=== PATIENT | male | born 1945 | race Caucasian/White ===

== ENCOUNTER 2024-04-26 17:21 | Inpatient (IN) | payer MEDICARE, OTHER, SELFPAY ==
[2024-04-26] VITALS (10 sets, daily range): BP systolic 135–157; BP diastolic 66–74; PULSE 77–94; TEMP 37.3–37.7; O2SAT 90–98; BMI 20.1
--- NOTE | 2024-04-26 18:07 | ECG_ITS ---
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
--- NOTE | 2024-04-26 18:07 | XR_ITS ---
The [address] [address] Patient Name: DARELL TREJO MRN: [id number] date: 1945 Sex: M Assigned Patient Location: ED.MAIN Current Patient Location: ED.MAIN Accession/Order Number: [id number] Exam Date: 04/26/2024 18:45 Report Date: 04/26/2024 19:59 At the request of: MIGUE POOL Procedure: XR chest 1V EXAM: XR chest 1V COMPARISON: 09/21/2022 CLINICAL INDICATION: Fever, shortness of breath, increased confusion. FINDINGS: Median sternotomy wires and thoracic aortic graft, new compared to prior. Cardiac silhouette borderline enlarged. Low lung volumes. Nonspecific obscuration of the left hemidiaphragm/costophrenic angle similar to prior. Small left pleural effusion or retrocardiac left lower lung airspace opacity difficult to exclude. Otherwise the lungs appear clear. No right pleural effusion. No evidence of pneumothorax. XR/XR chest 1V IMPRESSION: Low lung volumes. Nonspecific obscuration of the left hemidiaphragm/costophrenic angle similar to prior. Small left pleural effusion or retrocardiac left lower lung airspace opacity difficult to exclude. Otherwise lungs appear clear. Electronically authenticated by: NEIDA THORNTON Date: 04/26/2024 19:59
--- NOTE | 2024-04-26 18:24 | ED.GENADUL1 ---
HPI HPI - General Adult General Chief complaint: Altered Mental Status Stated complaint: ALTERED MENTAL STATUS Time Seen by Provider: 04/26/24 18:11 Source: patient and family Mode of arrival: walk-in Limitations: no limitations History of Present Illness HPI narrative: This patient is here with his from [facility] in [place]. His describes him as a hot mess. This patient was in [facility] in [place] for weeks and weeks with multiple extensive cardiovascular and abdominal vascular procedures. To her understanding he has a stent extending from his aortic arch down into his abdominal aorta. 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 Will try to obtain his discharge diagnosis from [facility]. His chief complaint today is increased lethargy not as active not feeling very well. He is really not complaining of any pain. No real nausea or vomiting or diarrhea. His thinks he might be a little bit more confused than usual. He has not had any falls. He is starting his rehab over there. He has had multiple blood transfusions in the past. He is making a little bit a urine recently but he is largely still on peritoneal dialysis. He denies any abdominal pain today. Should also be noted that he received multiple blood transfusions. One of the surgeries was an emergency procedure after the stent was placed because he developed cardiac tamponade and had drainage of a pericardial effusion. Related Data Allergies Allergy/AdvReac Type Severity Reaction Status Date / Time cephalexin Allergy Unknown Verified 04/26/24 18:26 ibuprofen [From Motrin] AdvReac Severe one kidney Verified 04/26/24 17:25 NSAIDS (Non-Steroidal AdvReac Unknown Verified 04/26/24 18:26 Anti-Inflamma Opioid HPI Opioid Management Most Recent Opioid Data: No Data to Display Exam Narrative Exam Narrative: He is awake alert vital signs are noted. Oxygen saturation is 90% on room air. He does improve with low flow cannula. At this time he is oriented times time place and person. He is able to describe a lot of the previous surgical procedures. He was slightly confused about his family doctor's name and address but is generally not encephalopathic at this time. His neck is soft and supple with no meningeal irritation he has no headache or neck pain. Is oral cavity does not show any evidence of dental infection or soft tissue swelling. His lungs have some scattered rhonchi. Heart sounds are normal with no S3-S4 or murmur. Abdomen is soft and supple with no tenderness guarding masses or rebound. Extremities has poor skin turgor clinical volume depletion and dehydration noted. No soft tissue swelling or cellulitis of the lower extremities. He does have strong pulses. Constitutional Vital Signs, click to edit/add: Last Vital Signs Temp 99.8 F 04/26/24 17:22 Pulse 78 04/26/24 17:22 Resp 20 04/26/24 17:22 BP 136/74 04/26/24 17:22 Pulse Ox 90 L 04/26/24 18:08 O2 Del Method Room Air, Nasal Cannula 04/26/24 18:08 O2 Flow Rate 2 04/26/24 18:08 Course Vital Signs Vital signs: Vital Signs Temperature 99.8 F 04/26/24 17:22 Pulse Rate 78 04/26/24 17:22 Respiratory Rate 20 04/26/24 17:22 Blood Pressure 136/74 04/26/24 17:22 Pulse Oximetry 95 04/26/24 17:22 Oxygen Delivery Method Room Air 04/26/24 17:22 Temperature 99.8 F 04/26/24 17:22 Pulse Rate 78 04/26/24 17:22 Respiratory Rate 20 04/26/24 17:22 Blood Pressure 136/74 04/26/24 17:22 Pulse Oximetry 90 L 04/26/24 18:08 Oxygen Delivery Method Room Air, Nasal Cannula 04/26/24 18:08 Oxygen Delivery Flow Rate 2 04/26/24 18:08 Medical Decision Making MDM Narrative Medical decision making narrative: This patient has multiple multiple severe medical problems just recently home from [facility] to a [place] [facility] [place] sent here for first-time evaluation. I explained to the if we find any medical problems of substance he will have to be transferred and she is in agreement with that. Routine blood testing imaging EKGs urinalysis will be done. Discharge Plan Discharge Chief Complaint: Altered Mental Status Clinical Impression: Weakness Patient Disposition: Still a Patient Print Language: Yoruba Referrals: ROBBY CARRASCO [Primary Care Provider] - 1 week
[2024-04-26 18:27] LABS: Basophils Absolute Auto 0.1 10^3/uL (0.0-0.1); Basophils Percent Auto 0.6 % (0.2-2.0); Eosinophils Absolute Auto 0.1 10^3/uL (0.0-0.7); Eosinophils Percent Auto 1.3 % (0.9-7.0); Hematocrit 28.3 % (42.0-54.0); Hemoglobin 9.4 g/dL (14.0-18.0); Immature Granulocytes Abs Auto 0.06 10^3/uL (0.00-0.03); Immature Granulocytes Pct Auto 0.7 % (0.0-0.5); Lymphocytes Absolute Auto 1.1 10^3/uL (1.2-3.8); Mean Corpuscular HGB Conc 33.2 g/dL (29.9-35.2); Mean Corpuscular Hemoglobin 32.1 pg (25.9-34.0); Mean Corpuscular Volume 96.6 fL (80.0-94.0); Mean Platelet Volume 12.1 fL (9.5-13.5); Monocytes Absolute Auto 0.6 10^3/uL (0.3-0.8); Monocytes Percent Auto 7.3 % (1.7-12.0); Neutrophils Absolute Auto 6.6 10^3/uL (1.4-6.5); Neutrophils Percent Auto 77.1 % (43.0-75.0); Platelet Count 104 10^3/uL (150-450); Red Blood Count 2.93 10^6/uL (4.70-6.10); Red Cell Distribution Width 19.2 % (11.0-15.0); White Blood Count 8.6 10^3/uL (4.0-11.0)
[2024-04-26 18:50] LABS: INR 1.31; Prothrombin Time 13.5 sec (9.0-11.6)
[2024-04-26 19:03] LABS: Lactate/Lactic Acid 1.3 mmol/L (0.4-2.0)
[2024-04-26 19:07] LABS: Alanine Aminotransferase 37 U/L (16-63); Albumin Globulin Ratio 0.5; Albumin Level 1.7 g/dL (3.4-5.0); Alkaline Phosphatase 137 U/L (46-116); Anion Gap 12.9; Aspartate Amino Transferase 63 U/L (15-37); BUN Creatinine Ratio 7.2; Bilirubin Total 0.7 mg/dL (0.2-1.0); Calcium 7.6 mg/dL (8.5-10.1); Carbon Dioxide 26.1 mmol/L (21.0-32.0); Chloride 94 mmol/L (98-107); Estimated GFR (African America 8 (>=60); Estimated GFR (Non-African Ame 7 (>=60); Globulin 3.7 g/dL; Glucose 95 mg/dL (74-106); Sodium 128 mmol/L (136-145); Total Protein 5.4 g/dL (6.4-8.2); Troponin I High Sensitivity 11.6 pg/mL (4.0-76.1)
--- NOTE | 2024-04-26 20:58 | CT_ITS ---
The [address] [address] Patient Name: DARELL TREJO MRN: [id number] date: 1945 Sex: M Assigned Patient Location: ER Current Patient Location: ER Accession/Order Number: [id number] Exam Date: 04/26/2024 21:17 Report Date: 04/26/2024 22:55 At the request of: ESTER COTTO Procedure: CT abdomen pelvis wo con CT ABDOMEN/PELVIS WITHOUT IV CONTRAST. INDICATION: fever/recent surgery COMPARISON: There are no other studies available for comparison. TECHNIQUE: Contiguous axial images were obtained from the lung bases to the pelvic floor without intravenous or oral contrast. Coronal and sagittal reformations are provided. FINDINGS: LOWER LUNGS: There are small bilateral pleural effusions and atelectasis. LIVER/BILIARY TREE: No discrete lesion. No intrahepatic ductal dilatation. GALLBLADDER: No significant gallbladder wall thickening. No radiopaque stone. CBD: Normal CBD. SPLEEN: Normal in size. PANCREAS: No appreciable peripancreatic fluid. No pancreatic ductal dilatation. No discrete lesion. ADRENALS: Normal. KIDNEYS: Severely atrophic left kidney. No hydronephrosis. No radiopaque calculus. STOMACH AND BOWEL: Decompressed stomach. No dilated bowel loops. No bowel wall thickening. APPENDIX: Not visualized. PERITONEAL CAVITY: Small ascites.. Peritoneal dialysis catheter noted in the pelvis. ABDOMINAL WALL: Anasarca. Probable 1.6 cm subcutaneous hematoma in the left inguinal region. LYMPH NODES: No mesenteric or retroperitoneal lymphadenopathy by CT criteria. ABDOMINAL AORTA: There is an infrarenal abdominal aortic aneurysm measuring 7.3 x 5.9 cm. Status post aortoiliac endoluminal stent graft repair.. PELVIS: No acute abnormality. MUSCULOSKELETAL: No acute osseous abnormality. CT/CT abdomen pelvis wo con IMPRESSION: 1. No acute abnormality in the abdomen or pelvis. 2. Abdominal aorta 7.3 cm aneurysm status post aortoiliac endoluminal stent graft repair. 3. Small ascites. Peritoneal dialysis catheter in place. 4. Small bilateral pleural effusions and atelectasis. Electronically authenticated by: PRISCILA REMY Date: 04/26/2024 22:55
--- NOTE | 2024-04-26 20:58 | CT_ITS ---
[address] [address] Patient Name: DARELL TREJO MRN: [id number] date: 1945 Sex: M Assigned Patient Location: ER Current Patient Location: ER Accession/Order Number: [id number] Exam Date: 04/26/2024 21:17 Report Date: 04/26/2024 23:19 At the request of: JAKE MARI Procedure: CT chest wo con EXAMINATION: CT chest wo con, 04/26/2024 9:17 PM EDT HISTORY: productive cough COMPARISON: Multiple priors, most recent available chest x-ray 04/26/2024, 09/21/2022 TECHNIQUE: CT scan of the chest was performed without IV contrast. CT dose reduction technique was used, including Automated Exposure Control. FINDINGS: Moderate frothy secretions/mucous within the left bronchus and lower bronchial airways with left lower distal bronchial airway mucous plugging. Moderate lung consolidations at the bilateral lower lobes. Moderate left and small right pleural effusions with mild parietal and visceral pleural thickening. Cardiomegaly with heavy calcifications throughout the left and right coronary arteries and aortic valves. 7 mm thick pericardial effusion with mild anterior pericardial wall thickening. Prior thoracic aorta repair with thoracic and abdominal aortic stent is seen. 16 mm thick dense periaortic fluid located adjacent to the left thoracic aortic arch wall (image [id number] series 4). Aortic root measures 4.2 cm diameter. Partially visualized peritoneal free air and abdominal ascites are seen. Small hiatal hernia. No acute bony abnormality. Prior sternotomy. CT/CT chest wo con IMPRESSION: 1. Moderate frothy secretions/mucous within the left bronchus and lower bronchial airways with left lower distal bronchial airway mucous plugging. 2. Moderate lung consolidations at the bilateral lower lobes reflecting atelectasis and/or pneumonitis. 3. Moderate left and small right pleural effusions with mild parietal and visceral pleural thickening. Finding raises question of exudate etiology. 4. Cardiomegaly with heavy calcifications throughout the left and right coronary arteries and aortic valves. Correlate for any heart congestion. 5. 7 mm thick pericardial effusion with mild anterior pericardial wall thickening raising the question of pericardial inflammation/pericarditis. 6. Prior thoracic aorta repair with thoracic and abdominal aortic stent is seen. 16 mm thick dense periaortic fluid located adjacent to the left thoracic aortic arch wall (image 32-33 series 4). CT angiogram with contrast to better evaluate as indicated. 7. Partially visualized peritoneal free air and abdominal ascites are seen. CRITICAL: Important impression #1, #2, #3, #4, #5, #7 communicated to and acknowledged by Dr. Jake Mari at approximately 11:16 PM Eastern time 04/26/2024. The verbal phone communication was made by Saleem Rivera. Electronically authenticated by: SALEEM RIVERA Date: 04/26/2024 23:19
[2024-04-26] MEDS: LIDOCAINE 2% JELLY 10 ML UR (21:30)
[2024-04-26 21:49] LABS: Bilirubin Urine NEGATIVE (NEGATIVE); Blood Urine MODERATE (NEGATIVE); Clarity Urine CLEAR (CLEAR); Color Urine LT. YELLOW (YELLOW); Glucose Urine UA NEGATIVE (NEGATIVE); Ketones Urine NEGATIVE (NEGATIVE); Leukocyte Esterase Urine SMALL (NEGATIVE); Nitrite Urine NEGATIVE (NEGATIVE); Protein Urine >=300 mg/dL (NEG/TRACE); Urobilinogen Urine 0.2 EU/dL (0.2-1.0); pH Urine 7.5 (5.0-9.0)
[2024-04-26 21:52] LABS: Urine Microscopic Indicated YES
[2024-04-26 22:01] LABS: Bacteria Urine MODERATE #/HPF (NONE SEEN); Mucus Urine NONE SEEN (NONE SEEN); RBC Urine NONE SEEN #/HPF (0-2); Squamous Epithelial Cell Urine NONE SEEN #/LPF (NONE/RARE); WBC Urine >100 #/HPF (NONE SEEN)
[2024-04-26 22:02] LABS: Amorphous Sediment Urine FEW; Cast Seen? NONE SEEN #/LPF (NONE SEEN); Crystals Seen? None Seen #/HPF (None Seen); Urine Culture Indicated YES
[2024-04-26] MEDS: LEVOFLOXACIN IN DEXTROSE 5 % 500 MG/100 ML PIGGYBACK 100 MG IV (22:48)
[2024-04-27] VITALS (10 sets, daily range): BP systolic 116–137; BP diastolic 52–67; PULSE 70–81; TEMP 36.6–36.8; O2SAT 83–99; BMI 20.9
[2024-04-27] MEDS: MORPHINE SULFATE 2 MG/ML SYRINGE IV (00:12)
[2024-04-27] MEDS: 0.9 % SODIUM CHLORIDE 1,000 ML 75 ML IV (02:19)
--- NOTE | 2024-04-27 04:18 | PC.NURSE ---
jc hospitalist notified of critical BNP 97814. No new orders at this time
[2024-04-27 05:09] LABS: Basophils Percent Auto 0.4 % (0.2-2.0); Eosinophils Percent Auto 0.4 % (0.9-7.0); Hematocrit 25.1 % (42.0-54.0); Hemoglobin 8.3 g/dL (14.0-18.0); Immature Granulocytes Abs Auto 0.05 10^3/uL (0.00-0.03); Immature Granulocytes Pct Auto 0.5 % (0.0-0.5); Lymphocytes Absolute Auto 1.3 10^3/uL (1.2-3.8); Lymphocytes Percent Auto 12.9 % (20.5-60.0); Mean Corpuscular HGB Conc 33.1 g/dL (29.9-35.2); Mean Corpuscular Hemoglobin 32.2 pg (25.9-34.0); Mean Corpuscular Volume 97.3 fL (80.0-94.0); Mean Platelet Volume 11.8 fL (9.5-13.5); Monocytes Absolute Auto 0.8 10^3/uL (0.3-0.8); Monocytes Percent Auto 7.9 % (1.7-12.0); Neutrophils Absolute Auto 7.9 10^3/uL (1.4-6.5); Neutrophils Percent Auto 77.9 % (43.0-75.0); Platelet Count 80 10^3/uL (150-450); Red Blood Count 2.58 10^6/uL (4.70-6.10); Red Cell Distribution Width 19.5 % (11.0-15.0); White Blood Count 10.2 10^3/uL (4.0-11.0)
[2024-04-27 05:16] LABS: Alanine Aminotransferase 30 U/L (16-63); Albumin Globulin Ratio 0.4; Albumin Level 1.4 g/dL (3.4-5.0); Alkaline Phosphatase 111 U/L (46-116); Anion Gap 12.3; Aspartate Amino Transferase 48 U/L (15-37); BUN Creatinine Ratio 7.3; Bilirubin Total 0.6 mg/dL (0.2-1.0); Calcium 7.2 mg/dL (8.5-10.1); Carbon Dioxide 26.8 mmol/L (21.0-32.0); Chloride 95 mmol/L (98-107); Estimated GFR (African America 8 (>=60); Estimated GFR (Non-African Ame 7 (>=60); Globulin 3.3 g/dL; Glucose 85 mg/dL (74-106); Potassium 5.1 mmol/L (3.5-5.1); Sodium 129 mmol/L (136-145); Total Protein 4.7 g/dL (6.4-8.2)
--- NOTE | 2024-04-27 09:54 | PC.NURSE ---
Patient's called keno writer and stated she could not bring in patient's dialysis equipment and wanted him to be transferred to [facility], as that is where all his specialists are. Steel Erector Apprentice then called and spoke with Dr Clemente, who states he agrees and will start transfer process
--- NOTE | 2024-04-27 10:01 | P.HP_ITS ---
HPI H&P: HPI History of Present Illness Chief complaint: ALTERED MENTAL STATUS Pneumonia Narrative: Pt who is on home peritoneal dialysis per scented to the emergency room with increasing altered mental status. In ER found to have possible UTI and possible left lower lobe pneumonia. Patient has had a persistent cough with increasing cough over the last couple days. When I saw patient up on the medical surgical floor, he was resting comfortably in bed but did have a cough persisting throughout the evaluation. Opioid HPI Opioid Management Most Recent Pain and Opioid Data: Last Pain Assessment 04/27/24 10:00 Last MAR Pain Assessment 04/27/24 00:12 Last ORT Total Score 0 04/27/24 03:56 Last ORT Risk Category Low Risk 04/27/24 03:56 Review of Systems ROS Status of ROS 10 or more systems reviewed and unremark able except as noted in history and below PFSH PFS Medical History (Updated 04/27/24 @ 10:50 by Priyank Clemente MD) Depression ?F32.A - Depression, unspecified (ICD-10) Anxiety ?F41.9 - Anxiety disorder, unspecified (ICD-10) Hypertension ?I10 - Essential (primary) hypertension (ICD-10) End stage renal disease ?N18.6 - End stage renal disease (ICD-10) Peritoneal dialysis catheter in place ?Z99.2 - Dependence on renal dialysis (ICD-10) AAA (abdominal aortic aneurysm) ?I71.40 - Abdominal aortic aneurysm, without rupture, unspecified (ICD-10) Fatigue ?R53.83 - Other fatigue (ICD-10) Hematuria ?R31.9 - Hematuria, unspecified (ICD-10) Abnormal weight loss ?R63.4 - Abnormal weight loss (ICD-10) Status post endoscopic repair of thoracic aortic aneurysm (TAA) ?Z86.79 - Personal history of other diseases of the circulatory system (ICD- 10) ?Z98.890 - Other specified postprocedural states (ICD-10) Aneurysmal dilatation ?I72.9 - Aneurysm of unspecified site (ICD-10) Mural thrombus of heart ?I51.3 - Intracardiac thrombosis, not elsewhere classified (ICD-10) Arterial stenosis ?I77.1 - Stricture of artery (ICD-10) Atrophy of left kidney ?N26.1 - Atrophy of kidney (terminal) (ICD-10) Bladder tumor ?D49.4 - Neoplasm of unspecified behavior of bladder (ICD-10) PAD (peripheral artery disease) ?I73.9 - Peripheral vascular disease, unspecified (ICD-10) Surgical History (Updated 04/27/24 @ 03:49 by Sophy June RN) S/P femoral-popliteal bypass surgery ?Z95.828 - Presence of other vascular implants and grafts (ICD-10) S/P insertion of iliac artery stent ?Z95.828 - Presence of other vascular implants and grafts (ICD-10) H/O repair of rotator cuff ?Z98.890 - Other specified postprocedural states (ICD-10) H/O right knee surgery ?Z98.890 - Other specified postprocedural states (ICD-10) History of endovascular stent graft for abdominal aortic aneurysm ?Z95.828 - Presence of other vascular implants and grafts (ICD-10) Status post endovascular aneurysm repair (EVAR) ?Z98.890 - Other specified postprocedural states (ICD-10) ?Z86.79 - Personal history of other diseases of the circulatory system (ICD- 10) Status post aortic arch reconstruction ?Z98.890 - Other specified postprocedural states (ICD-10) Social History (Updated 04/27/24 @ 03:50 by Sophy June, DANIKA) Within the past year, how often did you have a drink containing alcohol: monthly or less Within the past year, how many standard drinks containing alcohol did you have on a typical day: 3 or 4 Within the past year, how often did you have six or more drinks on one occasion: never Total score: 2 Score interpretation: A score less than 4 is consistent with normal alcohol consumption. Smoking status: Current every day smoker Non-prescribed substance use: denies use Meds Home Medications and Allergies Home Medications ?Medication ?Instructions ?Recorded ?Confirmed ?Type albuterol sulfate 90 mcg/actuation 2 inh inhalation Q6H PRN shortness 04/27/24 04/27/24 History aerosol inhaler of breath or wheezing amlodipine 5 mg tablet 5 mg PO DAILY 04/27/24 04/27/24 History aspirin 81 mg tablet,delayed 81 mg PO DAILY 04/27/24 04/27/24 History release atorvastatin 10 mg tablet 10 mg PO BEDTIME 04/27/24 04/27/24 History cholecalciferol (vitamin D3) 1,250 1,250 mcg PO QWEEK 04/27/24 04/27/24 History mcg (50,000 unit) capsule colchicine 0.6 mg tablet 0.3 mg PO DAILY 04/27/24 04/27/24 History dronabinol 2.5 mg capsule 2.5 mg PO BID 04/27/24 04/27/24 History epoetin braulio-epbx 15,000 unit subcut QWEEK 04/27/24 04/27/24 History escitalopram oxalate 10 mg tablet 10 mg PO DAILY 04/27/24 04/27/24 History gabapentin 100 mg capsule 100 mg PO DAILY 04/27/24 04/27/24 History gentamicin 0.1 % topical cream 1 applic topical DAILY 04/27/24 04/27/24 History guaifenesin 600 mg tablet, 600 mg PO BID PRN congestion 04/27/24 04/27/24 History extended release 12 hr (Mucinex) hydroxyzine HCl 25 mg tablet 25 mg PO Q6H PRN itching 04/27/24 04/27/24 History latanoprost 0.005 % eye drops 1 drp ophthalmic (eye) BEDTIME 04/27/24 04/27/24 History melatonin 10 mg capsule 10 mg PO BEDTIME 04/27/24 04/27/24 History metoprolol tartrate 25 mg tablet 25 mg PO BID 04/27/24 04/27/24 History oxycodone 5 mg tablet 5 mg PO Q6H PRN pain 04/27/24 04/27/24 History pantoprazole 40 mg tablet,delayed 40 mg PO DAILY 04/27/24 04/27/24 History release polysaccharide iron complex 150 mg 150 mg PO DAILY 04/27/24 04/27/24 History iron capsule (Poly-Iron) sennosides 8.6 mg-docusate sodium 1 tab-cap PO BID PRN constipation 04/27/24 04/27/24 History 50 mg capsule sevelamer carbonate 800 mg tablet 800 mg PO TID 04/27/24 04/27/24 History (Renvela) sodium chloride 1,000 mg soluble 1,000 mg PO BID 04/27/24 04/27/24 History tablet tamsulosin 0.4 mg capsule 0.8 mg PO BEDTIME 04/27/24 04/27/24 History vitamin B complex and vitamin C 1 cap PO DAILY 04/27/24 04/27/24 History no.20-folic acid 1 mg capsule (Mynephrocaps) wound dressings (Triad Wound 1 applic topical TID 04/27/24 04/27/24 History Dressing paste) Allergies Allergy/AdvReac Type Severity Reaction Status Date / Time cephalexin Allergy Unknown Verified 04/27/24 03:07 ibuprofen [From Motrin] AdvReac Severe one kidney Verified 04/27/24 03:07 NSAIDS (Non-Steroidal AdvReac Unknown Verified 04/27/24 03:07 Anti-Inflamma Exam Constitutional Vital Signs, click to edit/add: Last Vital Signs Temp 98.2 F 04/27/24 07:47 Pulse 75 04/27/24 07:47 Resp 18 04/27/24 07:47 BP 137/67 04/27/24 07:47 Pulse Ox 92 L 04/27/24 07:51 O2 Del Method Nasal Cannula 04/27/24 07:51 O2 Flow Rate 3 04/27/24 07:51 Documenting provider has reviewed patient's vital signs: yes Common normals: apparent distress (Persiostent COugh) Chest Common normals: inspection of chest normal Respiratory Common normals: abnormal respiratory effort (Return distress) Auscultation: rhonchi and egophony left lower; no rales and no wheezes Cardio Common normals: regular rate and regular rhythm Extremity Common normals: normal to inspection, full ROM and no clubbing, cyanosis or edema Neuro Common normals: oriented x3, CN's II-XII intact bilaterally and moves all extremities Results Labs Labs: Short CBC 04/26/24 04/27/24 Range/Units 18:01 04:49 WBC 8.6 10.2 (4.0-11.0) 10^3/uL Hgb 9.4 L 8.3 L (14.0-18.0) g/dL Hct 28.3 L 25.1 L (42.0-54.0) % Plt Count 104 L 80 L (150-450) 10^3/uL BMP 04/26/24 04/27/24 18:01 04:49 Sodium 128 L 129 L Potassium 5.0 5.1 Chloride 94 L 95 L Carbon Dioxide 26.1 26.8 BUN 56.0 H 59.0 H Creatinine 7.75 H* 8.07 H* Glucose 95 85 Calcium 7.6 L 7.2 L Liver Function 04/26/24 04/27/24 Range/Units 18:01 04:49 Total Bilirubin 0.7 0.6 (0.2-1.0) mg/dL AST 63 H 48 H (15-37) U/L ALT 37 30 (16-63) U/L Alkaline Phosphatase 137 H 111 (46-116) U/L Albumin 1.7 L 1.4 L (3.4-5.0) g/dL Urine 04/26/24 Range/Units 21:44 Urine Color Lt. yellow (YELLOW) Urine Clarity Clear (CLEAR) Urine pH 7.5 (5.0-9.0) Ur Specific [place] 1.020 (1.005-1.025) Urine Protein >=300 A (NEG/TRACE) mg/dL Urine Glucose (UA) Negative (NEGATIVE) mg/dL Assessment and Plan Assessment and Plan (1) Weakness: (2) Hypertension: (3) End stage renal disease: (4) Peritoneal dialysis catheter in place: (5) Altered mental state: (6) Acute UTI: (7) Left lower lobe pneumonia: (8) Protein-calorie malnutrition, severe: (9) Pleural effusion: (10) Acute respiratory failure with hypoxia: (11) Anemia in chronic kidney disease: (12) Hyponatremia: Plan Uncontrolled hypertension, altered mental status, acute hypoxia with O2 sat of 83%-improved with 2 L nasal cannula to 90%, pleural effusion, due to left lower lobe pneumonia, confirmed on exam and CT scan. IV antibiotics. Sputum culture try to be obtained. Blood cultures pending. Possible acute UTI-culture pending. Continue antibiotics as outlined above End-stage renal disease on peritoneal dialysis-after discussion with family they would prefer him to be transferred to a place they could do of the dialysis. Arrangement made for transfer to [facility] Altered mental status-likely secondary to the above improved this morning. Alert and oriented x 3 Pleural effusion-this is likely related to his end-stage renal disease. Will consider checking echocardiogram but patient being transferred Uncontrolled hypertension-will use as needed hydralazine Severe protein calorie malnutrition-diet management Admission status: Patient admitted with left lower lobe pneumonia resulting in acute hypoxia-medically necessary treatment will span 2 midnights. Inpatient s nallely. Urinary Catheter Management Urinary Catheter Management Straight: Cath placed during this visit: yes Urethral indwelling: No Insertion date: 04/26/24 Insertion time: 21:30
--- NOTE | 2024-04-27 10:53 | P.DS_ITS ---
DS: Providers Provider Date of admission: 04/27/24 01:32 Primary care physician: ROBBY CARRASCO Consults: 04/27/24 01:24 Consult to Pharmacy Routine Consulting Provider: Reason for consultation: Cr 7.7, levaquin dose Has provider been notified: No Occupational Therapy Eval and Treat Routine Reason for consultation: weakness Has provider been notified: No Physical Therapy Eval and Treat Routine Reason for consultation: weakness Has provider been notified: No 04/27/24 05:56 Consult to Telenephrology Routine Reason for consultation: patient has 1 kidney and Cr on admit 7 and now 8.03 (he is on PD dialysis) Has provider been notified: No DS: Diagnosis Discharge Diagnosis (1) Weakness: (2) Hypertension: (3) End stage renal disease: (4) Peritoneal dialysis catheter in place: (5) Altered mental state: (6) Acute UTI: (7) Left lower lobe pneumonia: (8) Protein-calorie malnutrition, severe: (9) Pleural effusion: (10) Acute respiratory failure with hypoxia: (11) Anemia in chronic kidney disease: (12) Hyponatremia: Plan Uncontrolled hypertension, altered mental status, acute hypoxia with O2 sat of 83%-improved with 2 L nasal cannula to 90%, pleural effusion, due to left lower lobe pneumonia, confirmed on exam and CT scan. Stable at the time of transfer Possible acute UTI-culture pending. Continue antibiotics as outlined above End-stage renal disease on peritoneal dialysis-after discussion with family they would prefer him to be transferred to a place they could do of the dialysis. Arrangement made for transfer to [facility] Altered mental status-likely secondary to the above improved this morning. Alert and oriented x 3-resolved at the time of transfer Pleural effusion-this is likely related to his end-stage renal disease. Will consider checking echocardiogram but patient being transferred-stable to time of transfer Uncontrolled hypertension-will use as needed hydralazine-stable at the time of transfer Severe protein calorie malnutrition-diet management Admission status: Patient admitted with left lower lobe pneumonia resulting in acute hypoxia-medically necessary treatment will span 2 midnights. Inpatient status. DS: Summary Hospital Course Hospital Course: Patient was seen and evaluated in the emergency room. Discussion was placed about possible transfer. Transferring facility felt he was stable at the time. Family agreed to do his home peritoneal dialysis while he is inpatient here. Patient is improved overnight with no longer having altered mental status. White blood cell count remains normal. Persistent cough throughout the evaluation with CT scan and egophony on physical examination is consistent with left lower lobe pneumonia. He has been on antibiotics. We expanded the coverage today. At this point though he needs his peritoneal dialysis and swollen arrange transfer to outside facility [facility] for continued care, reason for transfer is unable to provide services necessary Status at Discharge Overall status at discharge: patient is not back to baseline Time Spent with Patient Time attestation: Total time spent providing and/or coordinating discharge services: Time spent: greater than 30 minutes Exam Constitutional Vital Signs, click to edit/add: Last Vital Signs Temp 98.2 F 04/27/24 07:47 Pulse 75 04/27/24 07:47 Resp 18 04/27/24 07:47 BP 137/67 04/27/24 07:47 Pulse Ox 92 L 04/27/24 07:51 O2 Del Method Nasal Cannula 04/27/24 07:51 O2 Flow Rate 3 04/27/24 07:51 Documenting provider has reviewed patient's vital signs: yes Common normals: apparent distress (Persiostent COugh) Chest Common normals: inspection of chest normal Respiratory Common normals: abnormal respiratory effort (Return distress) Auscultation: rhonchi and egophony left lower; no rales and no wheezes Cardio Common normals: regular rate and regular rhythm Extremity Common normals: normal to inspection, full ROM and no clubbing, cyanosis or edema Neuro Common normals: oriented x3, CN's II-XII intact bilaterally and moves all extremities DS: Data Data Completed and Pending Labs on day of discharge: Labs from last 24 hours 04/27/24 04/26/24 04/26/24 04:49 21:44 18:28 WBC 10.2 RBC 2.58 L Hgb 8.3 L Hct 25.1 L MCV 97.3 H MCH 32.2 MCHC 33.1 RDW 19.5 H Plt Count 80 L MPV 11.8 Neut % (Auto) 77.9 H Lymph % (Auto) 12.9 L [place] % (Auto) 7.9 Eos % (Auto) 0.4 L Baso % (Auto) 0.4 Neut # (Auto) 7.9 H Lymph # (Auto) 1.3 [place] # (Auto) 0.8 Eos # (Auto) 0.0 Baso # (Auto) 0.0 Abs Immat Gran (auto) 0.05 H Imm/Tot Granulo (auto) 0.5 PT INR Sodium 129 L Potassium 5.1 Chloride 95 L Carbon Dioxide 26.8 Anion Gap 12.3 BUN 59.0 H Creatinine 8.07 H* Est GFR ( Amer) 8 L Est GFR (Non-Af Amer) 7 L BUN/Creatinine Ratio 7.3 Glucose 85 Lactate Calcium 7.2 L Total Bilirubin 0.6 AST 48 H ALT 30 Alkaline Phosphatase 111 Troponin I High Sens NT-Pro-B Natriuret Pep 41831.0 H* Total Protein 4.7 L Albumin 1.4 L Globulin 3.3 Albumin/Globulin Ratio 0.4 Urine Color Lt. yellow Urine Clarity Clear Urine pH 7.5 Ur Specific [place] 1.020 Urine Protein >=300 A Urine Glucose (UA) Negative Urine Ketones Negative Urine Occult Blood Moderate A Urine Nitrite Negative Urine Bilirubin Negative Urine Urobilinogen 0.2 Ur Leukocyte Esterase Small A Urine RBC None seen Urine WBC >100 A Ur Squamous Epith Cells None seen Urine Crystals None seen Amorphous Sediment Few Urine Bacteria Moderate A Urine Casts None seen Urine Mucus None seen Ur Culture Indicated? Yes 04/26/24 18:01 WBC 8.6 RBC 2.93 L Hgb 9.4 L Hct 28.3 L MCV 96.6 H MCH 32.1 MCHC 33.2 RDW 19.2 H Plt Count 104 L MPV 12.1 Neut % (Auto) 77.1 H Lymph % (Auto) 13.0 L [place] % (Auto) 7.3 Eos % (Auto) 1.3 Baso % (Auto) 0.6 Neut # (Auto) 6.6 H Lymph # (Auto) 1.1 L [place] # (Auto) 0.6 Eos # (Auto) 0.1 Baso # (Auto) 0.1 Abs Immat Gran (auto) 0.06 H Imm/Tot Granulo (auto) 0.7 H PT 13.5 H INR 1.31 Sodium 128 L Potassium 5.0 Chloride 94 L Carbon Dioxide 26.1 Anion Gap 12.9 BUN 56.0 H Creatinine 7.75 H* Est GFR ( Amer) 8 L Est GFR (Non-Af Amer) 7 L BUN/Creatinine Ratio 7.2 Glucose 95 Lactate 1.3 Calcium 7.6 L Total Bilirubin 0.7 AST 63 H ALT 37 Alkaline Phosphatase 137 H Troponin I High Sens 11.6 NT-Pro-B Natriuret Pep Total Protein 5.4 L Albumin 1.7 L Globulin 3.7 Albumin/Globulin Ratio 0.5 Urine Color Urine Clarity Urine pH Ur Specific [place] Urine Protein Urine Glucose (UA) Urine Ketones Urine Occult Blood Urine Nitrite Urine Bilirubin Urine Urobilinogen Ur Leukocyte Esterase Urine RBC Urine WBC Ur Squamous Epith Cells Urine Crystals Amorphous Sediment Urine Bacteria Urine Casts Urine Mucus Ur Culture Indicated? Discharge Plan Discharge Disposition: Xfer Acute Care Hospital Condition: Fair
--- NOTE | 2024-04-27 11:41 | PC.NURSE ---
is aware of transport that has been set up for [id number]
--- NOTE | 2024-04-27 14:48 | PC.NURSE ---
[place] [facility] [place]
== END 2024-04-27 15:20 | disposition short-term general hospital (02) | DRG 177 ==
LOC: ER 04-27 01:00 → MS 04-27 01:36
PROVIDERS: Emergency Medicine Emergency Medical Services; Nurse Practitioner Acute Care; Admitting Provider Family Medicine; Emergency Provider Internal Medicine; PCP Family Medicine; Visit Provider Family Medicine
DX: J15.69 Pneumonia due to other Gram-negative bacteria (principal); E43 Unspecified severe protein-calorie malnutrition; N18.6 End stage renal disease; J96.01 Acute respiratory failure with hypoxia; I12.0 Hypertensive chronic kidney disease with stage 5 chronic kidney disease or end stage renal disease; E87.1 Hypo-osmolality and hyponatremia; J91.8 Pleural effusion in other conditions classified elsewhere; N39.0 Urinary tract infection, site not specified; B96.89 Other specified bacterial agents as the cause of diseases classified elsewhere; Z68.20 Body mass index [BMI] 20.0-20.9, adult; Z99.2 Dependence on renal dialysis; D63.1 Anemia in chronic kidney disease; F32.A Depression, unspecified; F41.9 Anxiety disorder, unspecified; I73.9 Peripheral vascular disease, unspecified; Z95.828 Presence of other vascular implants and grafts; F17.200 Nicotine dependence, unspecified, uncomplicated; E86.0 Dehydration; Z79.899 Other long term (current) drug therapy; Z79.82 Long term (current) use of aspirin; Z88.6 Allergy status to analgesic agent; Z88.1 Allergy status to other antibiotic agents
CPT/HCPCS: 36415; 71045; 71250; 74176; 80053; 81001; 83605; 83880; 84484; 85025; 85610; 87040; 87070; 87086; 87150; 87186; 87205; 93005; 94761; 96361; 96365; 96375; 99285; G0328; J2270